=== PATIENT | male | born 1970 | race Caucasian/White ===

== ENCOUNTER 2024-03-10 17:53 | Inpatient (IN) | payer BC ==
[~2024-03-10] VITALS: Ht 177.8 cm; Wt 97.7 kg
[2024-03-10 18:43] LABS: CHLORIDE 104 mEq/L (98-107); POTASSIUM 3.9 mEq/L (3.5-5.1); SODIUM 138 mEq/L (136-145)
[2024-03-10 18:44] LABS: CALCIUM 8.9 mg/dL (8.7-10.4); CARBON DIOXIDE 21 mEq/L (21-32)
[2024-03-10 18:49] LABS: CREATININE 0.6 mg/dL (0.6-1.3); GLUCOSE 153 mg/dL (70-105); UREA NITROGEN BLOOD 10 mg/dL (9-23)
[2024-03-10 18:51] LABS: ALANINE AMINOTRANSFERASE 101 IU/L (10-49); ALBUMIN 4.2 g/dL (3.2-4.8); ASPARTATE AMINOTRANSFERASE 346 IU/L (<34); BILIRUBIN DIRECT 1.5 mg/dL (<=3.0); BILIRUBIN TOTAL 2.8 mg/dL (0.1-1.0); PROTEIN TOTAL 7.2 g/dL (6.0-8.3)
[2024-03-10 19:27] LABS: BASOPHILS % 1.3 % (0.0-2.0); EOSINOPHILS % 0.2 % (0.0-5.0); HEMATOCRIT. 29.4 % (42.0-52.0); HEMOGLOBIN. 10.3 g/dL (14.0-18.0); LYMPHOCYTES % 9.9 % (20.0-50.0); MEAN CORPUSCULAR HEMOGLOBIN 37.2 pg (28.0-32.0); MEAN CORPUSCULAR HGB CONC 34.9 g/dL (31.0-37.0); MEAN CORPUSCULAR VOLUME 106.6 fL (80.0-94.0); MEAN PLATELET VOLUME 6.9 fl (7.4-10.4); NEUTROPHILS % 78.6 % (40.0-76.0); RED BLOOD CELL COUNT 2.76 mill/uL (4.7-6.1); RED CELL DISTRIBUTION WIDTH 13.1 % (11.6-14.6); WHITE BLOOD COUNT 3.2 x1000/uL (4.5-11.0)
[2024-03-10 19:34] LABS: DIFFERENTIAL COMMENT 1; PLATELET 31 x1000/uL (130-400)
[2024-03-10 19:35] LABS: ADD RBC MORPHOLOGY YES
[2024-03-10 19:42] LABS: PLATELET ESTIMATE MARKEDLY DECREASED
[2024-03-10] MEDS: DIAZEPAM 5 MG/ML 2ML SYR IV ONE (19:46)
[2024-03-10] MEDS: TETANUS, DIPHTHERIA, PERTUSSIS VAC/PF 0.5ML (>10YR OLD) IM ONE (19:46)
[2024-03-10] MEDS: CALCIUM GLUCONATE 1GM PREMIX 50 ML IV ONE (23:08)
[2024-03-10 23:44] LABS: TROPONIN I HIGH SENSITIVITY < 4 ng/L (3.0-53)
[2024-03-11] MEDS ORDERED: ONDANSETRON HCL 4MG/2ML INJ IV PRN
[2024-03-11] MEDS ORDERED: CLONIDINE 0.1MG TABLET PO PRN
[2024-03-11] MEDS ORDERED: HYDROCODONE/ACETAMINOPHEN 5/325MG TABLET PO PRN
[2024-03-11 01:10] VITALS: BP 124/81; PULSE 80; RESP 20; TEMP 38.0304
[2024-03-11] MEDS: DIPHENHYDRAMINE 50MG/ML VIAL IV PRN (02:28)
[2024-03-11] MEDS: CHLORDIAZEPOXIDE 25MG CAPSULE PO SCH (06:34)
[2024-03-11 07:12] LABS: CARBON DIOXIDE 22 mEq/L (21-32); CHLORIDE 103 mEq/L (98-107); POTASSIUM 2.9 mEq/L (3.5-5.1); SODIUM 139 mEq/L (136-145)
[2024-03-11 07:13] LABS: CALCIUM 8.7 mg/dL (8.7-10.4)
[2024-03-11 07:16] LABS: CREATINE KINASE MB FRACTION 0.7 ng/mL (0.5-3.6)
[2024-03-11 07:17] LABS: CREATININE 0.5 mg/dL (0.6-1.3)
[2024-03-11 07:18] LABS: GLUCOSE 117 mg/dL (70-105); UREA NITROGEN BLOOD 7 mg/dL (9-23)
[2024-03-11 07:19] LABS: CREATINE KINASE 185 IU/L (46-171)
[2024-03-11 08:00] VITALS: BP 125/88; PULSE 80; RESP 19; TEMP 36.61404; O2SAT 96
[2024-03-11 08:23] LABS: TROPONIN I HIGH SENSITIVITY < 4 ng/L (3.0-53)
[2024-03-11] MEDS: MVI, ADULT NO.1 10 ML, FOLIC ACID 1 MG, THIAMINE HCL 100 MG in SODIUM CHLORIDE 0.9% 1,0... IV SCH (08:55)
[2024-03-11] MEDS: PANTOPRAZOLE SODIUM 40 MG/VIAL IV SCH (08:56)
[2024-03-11 10:09] LABS: BASOPHILS % 1.2 % (0.0-2.0); EOSINOPHILS % 1.4 % (0.0-5.0); HEMATOCRIT. 30.6 % (42.0-52.0); HEMOGLOBIN. 10.9 g/dL (14.0-18.0); LYMPHOCYTES % 18.9 % (20.0-50.0); MEAN CORPUSCULAR HEMOGLOBIN 40.3 pg (28.0-32.0); MEAN CORPUSCULAR HGB CONC 35.6 g/dL (31.0-37.0); NEUTROPHILS % 68.5 % (40.0-76.0); RED BLOOD CELL COUNT 2.71 mill/uL (4.7-6.1); WHITE BLOOD COUNT 2.7 x1000/uL (4.5-11.0)
[2024-03-11 10:54] LABS: DIFFERENTIAL COMMENT 1
[2024-03-11 10:58] LABS: PLATELET 31 x1000/uL (130-400)
[2024-03-11 12:00] VITALS: BP 118/82; PULSE 66; RESP 19; TEMP 37.61412; O2SAT 98
[2024-03-11 16:00] VITALS: BP 123/87; PULSE 67; RESP 20; TEMP 36.50292; O2SAT 98
[2024-03-11 17:08] LABS: CREATINE KINASE MB FRACTION < 0.5 ng/mL (0.5-3.6)
[2024-03-11 17:10] LABS: CREATINE KINASE 234 IU/L (46-171)
[2024-03-11 17:30] LABS: TROPONIN I HIGH SENSITIVITY < 4 ng/L (3.0-53)
[2024-03-11] MEDS ORDERED: NALOXONE HCL 0.4MG/ML VIAL IV PRN (17:45)
[2024-03-11] MEDS: POTASSIUM CHLORIDE 20MEQ/PACKET PO NR (18:13)
[2024-03-11] MEDS: LORAZEPAM 2MG/ML INJ IV PRN (18:13)
[2024-03-11 20:00] VITALS: BP 127/85; PULSE 60; RESP 20; TEMP 36.72516; O2SAT 100
[2024-03-11] MEDS: KCL 20MEQ/100ML PREMIX 100 ML IV SCH (20:57)
[2024-03-12] VITALS: BP 141/87; PULSE 82; RESP 20; TEMP 36.61404; O2SAT 100
[2024-03-12 04:00] VITALS: BP 114/85; PULSE 78; RESP 20; TEMP 36.61404; O2SAT 99
[2024-03-12 08:00] VITALS: BP 117/87; PULSE 74; RESP 18; TEMP 36.114; O2SAT 98
[2024-03-12 08:02] LABS: POTASSIUM 3.4 mEq/L (3.5-5.1)
[2024-03-12 08:09] LABS: CALCIUM 8.7 mg/dL (8.7-10.4); CARBON DIOXIDE 22 mEq/L (21-32); CHLORIDE 106 mEq/L (98-107); POTASSIUM 3.4 mEq/L (3.5-5.1); SODIUM 138 mEq/L (136-145)
[2024-03-12 08:14] LABS: CREATININE 0.4 mg/dL (0.6-1.3); GLUCOSE 86 mg/dL (70-105); UREA NITROGEN BLOOD 6 mg/dL (9-23)
[2024-03-12 08:21] LABS: BASOPHILS % 0.9 % (0.0-2.0); EOSINOPHILS % 1.8 % (0.0-5.0); HEMATOCRIT. 30.6 % (42.0-52.0); HEMOGLOBIN. 10.8 g/dL (14.0-18.0); LYMPHOCYTES % 18.5 % (20.0-50.0); MEAN CORPUSCULAR HEMOGLOBIN 39.6 pg (28.0-32.0); MEAN CORPUSCULAR HGB CONC 35.1 g/dL (31.0-37.0); MEAN CORPUSCULAR VOLUME 112.8 fL (80.0-94.0); MONOCYTES % 13.5 % (2.0-8.0); NEUTROPHILS % 65.3 % (40.0-76.0); RED BLOOD CELL COUNT 2.72 mill/uL (4.7-6.1); RED CELL DISTRIBUTION WIDTH 13.2 % (11.6-14.6); WHITE BLOOD COUNT 2.8 x1000/uL (4.5-11.0)
[2024-03-12 09:51] LABS: DIFFERENTIAL COMMENT 1
[2024-03-12 09:53] LABS: PLATELET 30 x1000/uL (130-400)
[2024-03-12 12:00] VITALS: BP 123/81; PULSE 82; RESP 18; TEMP 36.61404; O2SAT 98
[2024-03-12] MEDS: POTASSIUM CHLORIDE 20MEQ TABLET SR PO NR (13:03)
[2024-03-12 16:00] VITALS: BP 125/79; PULSE 78; RESP 18; TEMP 36.6696; O2SAT 98
[2024-03-12 20:00] VITALS: BP 126/88; PULSE 85; RESP 20; TEMP 36.9474; O2SAT 100
[2024-03-12] MEDS ORDERED: LEVETIRACETAM 500MG in NACL 100ML PREMIX IV SCH (21:00)
[2024-03-12] MEDS: LEVETIRACETAM 500MG PREMIX 100ML IV SCH (21:42)
[2024-03-12] MEDS: QUETIAPINE FUMARATE 25MG TABLET PO SCH (21:43)
[2024-03-13] VITALS: BP 120/89; PULSE 100; RESP 20; TEMP 36.61404; O2SAT 100
[2024-03-13 04:00] VITALS: BP 119/83; PULSE 83; RESP 20; TEMP 36.55848; O2SAT 100
[2024-03-13 07:10] LABS: CARBON DIOXIDE 19 mEq/L (21-32); CHLORIDE 111 mEq/L (98-107); POTASSIUM 3.7 mEq/L (3.5-5.1); SODIUM 141 mEq/L (136-145)
[2024-03-13 07:15] LABS: CREATININE 0.4 mg/dL (0.6-1.3)
[2024-03-13 07:16] LABS: GLUCOSE 86 mg/dL (70-105); UREA NITROGEN BLOOD 7 mg/dL (9-23)
[2024-03-13 08:00] VITALS: BP 117/84; PULSE 80; RESP 20; TEMP 36.55848; O2SAT 100
[2024-03-13 08:03] LABS: BASOPHILS % 0.9 % (0.0-2.0); EOSINOPHILS % 2.3 % (0.0-5.0); HEMATOCRIT. 30.9 % (42.0-52.0); HEMOGLOBIN. 10.7 g/dL (14.0-18.0); LYMPHOCYTES % 19.3 % (20.0-50.0); MEAN CORPUSCULAR HEMOGLOBIN 38.7 pg (28.0-32.0); MEAN CORPUSCULAR HGB CONC 34.7 g/dL (31.0-37.0); MEAN CORPUSCULAR VOLUME 111.4 fL (80.0-94.0); MEAN PLATELET VOLUME 8.5 fl (7.4-10.4); NEUTROPHILS % 65.5 % (40.0-76.0); RED BLOOD CELL COUNT 2.78 mill/uL (4.7-6.1); WHITE BLOOD COUNT 2.8 x1000/uL (4.5-11.0)
[2024-03-13 08:37] LABS: PLATELET 41 x1000/uL (130-400)
[2024-03-13 08:38] LABS: DIFFERENTIAL COMMENT 1
[2024-03-13] MEDS: MORPHINE SULFATE 2 MG/ML INJ (NOT FOR IM USE) IV PRN (09:42)
[2024-03-13 12:00] VITALS: BP 104/75; PULSE 83; RESP 20; TEMP 36.55848; O2SAT 100
[2024-03-13 16:00] VITALS: BP 127/88; PULSE 81; RESP 20; TEMP 36.3918; O2SAT 100
[2024-03-13 20:00] VITALS: BP 115/80; PULSE 85; RESP 18; TEMP 36.6696; O2SAT 99
[2024-03-14] VITALS: BP 133/83; PULSE 88; RESP 18; TEMP 36.89184; O2SAT 99
[2024-03-14 04:00] VITALS: BP 134/83; PULSE 85; RESP 20; TEMP 36.78072; O2SAT 98
[2024-03-14 08:00] VITALS: BP 131/83; PULSE 96; RESP 19; TEMP 36.9474; O2SAT 95
[2024-03-14 12:00] VITALS: BP 140/94; PULSE 109; RESP 20; TEMP 36.61404; O2SAT 91
[2024-03-14] MEDS: THIAMINE HCL 100MG TABLET PO SCH (12:08)
[2024-03-14 16:00] VITALS: BP 135/95; PULSE 113; RESP 20; TEMP 37.05852; O2SAT 96
[2024-03-14 17:20] LABS: AMMONIA 26 uMol/L (<32)
[2024-03-14 17:25] LABS: VITAMIN B12 SERUM > 2000 pg/mL (211-911)
[2024-03-14 20:00] VITALS: BP 113/100; PULSE 113; RESP 19; TEMP 39.11424; O2SAT 98
[2024-03-14] MEDS: ACETAMINOPHEN 325MG TABLET PO PRN (21:55)
[2024-03-15] VITALS (7 sets, daily range): BP systolic 93–135; BP diastolic 65–87; PULSE 76–121; RESP 17–20; TEMP 36.3918–36.89184; O2SAT 93–97
[2024-03-15] MEDS: IPRATROPIUM/ALBUTEROL 0.5-3(2.5)MG/3ML NEB HHN SCH (01:30)
[2024-03-15] MEDS ORDERED: CEFEPIME 1GM IN DEXT 5% 50ML IV SCH (16:15)
[2024-03-15] MEDS: METHYLPREDNISOLONE SOD SUCC 40MG/ML (ACT-O-VIAL) IV SCH (19:06)
[2024-03-15] MEDS: ZOLPIDEM TARTRATE 5MG TABLET PO PRN (21:14)
[2024-03-15] MEDS: MICONAZOLE NITRATE 2% OINT 71GM TOP SCH (21:17)
[2024-03-15] MEDS: CEFEPIME 1GM PREMIX 50ML IV SCH (21:45)
[2024-03-16] VITALS (11 sets, daily range): BP systolic 99–109; BP diastolic 67–75; PULSE 80–104; RESP 16–20; TEMP 35.6–36.72516; O2SAT 93–98
[2024-03-16] MEDS ORDERED: CEFEPIME 1GM IN DEXT 5% 50ML IV SCH (04:15)
[2024-03-16] MEDS: MUPIROCIN 2% OINT 22GM TOP SCH (13:00)
[2024-03-16 19:02] LABS: BASOPHILS % 0.2 % (0.0-2.0); DIFFERENTIAL COMMENT 0; EOSINOPHILS % 0.1 % (0.0-5.0); HEMATOCRIT. 32.4 % (42.0-52.0); HEMOGLOBIN. 10.9 g/dL (14.0-18.0); LYMPHOCYTES % 7.9 % (20.0-50.0); MEAN CORPUSCULAR HGB CONC 33.8 g/dL (31.0-37.0); MEAN CORPUSCULAR VOLUME 109.5 fL (80.0-94.0); MEAN PLATELET VOLUME 8.7 fl (7.4-10.4); MONOCYTES % 13.2 % (2.0-8.0); NEUTROPHILS % 78.6 % (40.0-76.0); PLATELET 81 x1000/uL (130-400); RED BLOOD CELL COUNT 2.96 mill/uL (4.7-6.1); RED CELL DISTRIBUTION WIDTH 13.3 % (11.6-14.6); WHITE BLOOD COUNT 2.2 x1000/uL (4.5-11.0)
[2024-03-16 19:09] LABS: CHLORIDE 109 mEq/L (98-107); POTASSIUM 3.3 mEq/L (3.5-5.1); SODIUM 139 mEq/L (136-145)
[2024-03-16 19:10] LABS: CALCIUM 8.5 mg/dL (8.7-10.4); CARBON DIOXIDE 18 mEq/L (21-32)
[2024-03-16 19:15] LABS: CREATININE 0.4 mg/dL (0.6-1.3); GLUCOSE 163 mg/dL (70-105); UREA NITROGEN BLOOD 13 mg/dL (9-23)
[2024-03-17] VITALS (12 sets, daily range): BP systolic 103–117; BP diastolic 72–88; PULSE 65–92; RESP 16–20; TEMP 36.3–36.7; O2SAT 95–99
[2024-03-17 08:45] LABS: *AMPHETAMINES SCREEN URINE NEGATIVE (NEGATIVE); *BARBITURATES SCREEN URINE NEGATIVE (NEGATIVE); *BENZODIAZEPINES SCREEN URINE PRESUMPTIVE POSITIVE (NEGATIVE); *COCAINE SCREEN URINE NEGATIVE (NEGATIVE); METHADONE URINE SCREEN NEGATIVE (NEGATIVE); OPIATES URINE SCREEN NEGATIVE (NEGATIVE); PHENCYCLIDINE URINE SCREEN NEGATIVE (NEGATIVE)
[2024-03-17 08:46] LABS: CANNABINOID URINE SCREEN NEGATIVE (NEGATIVE); ECSTASY MDMA SCREEN URINE NEGATIVE (NEGATIVE)
[2024-03-17] MEDS ORDERED: THIAMINE HCL 100MG TABLET PO SCH (16:00)
[2024-03-18] VITALS (12 sets, daily range): BP systolic 118–136; BP diastolic 76–91; PULSE 70–87; RESP 16–20; TEMP 35.5–36.7; O2SAT 92–100
[2024-03-18 09:18] LABS: BASOPHILS % 0.1 % (0.0-2.0); DIFFERENTIAL COMMENT 0; EOSINOPHILS % 0.3 % (0.0-5.0); HEMATOCRIT. 35.2 % (42.0-52.0); LYMPHOCYTES % 9.2 % (20.0-50.0); MEAN CORPUSCULAR HEMOGLOBIN 37.1 pg (28.0-32.0); MEAN CORPUSCULAR HGB CONC 34.1 g/dL (31.0-37.0); MEAN CORPUSCULAR VOLUME 108.8 fL (80.0-94.0); MEAN PLATELET VOLUME 8.3 fl (7.4-10.4); MONOCYTES % 14.3 % (2.0-8.0); NEUTROPHILS % 76.1 % (40.0-76.0); PLATELET 110 x1000/uL (130-400); RED BLOOD CELL COUNT 3.23 mill/uL (4.7-6.1); RED CELL DISTRIBUTION WIDTH 13.5 % (11.6-14.6)
[2024-03-18 09:21] LABS: BG BASE EXCESS -1.6 mmol/L (-2.0-3.0); BG DEOXYHEMOGLOBIN 5.9 % (0.0-5.0); BG FRACTION INSPIRED OXYGEN 21; BG HCO3 ACT 21.5 mmol/L (21.0-28.0); BG METHEMOGLOBIN 0.1 % (0.5-1.5); BG PCO2 31.5 mmHg (35.0-48.0); BG PH 7.451 (7.350-7.450); BG PO2 69.9 mmHg (83.0-108.0); BG SAMPLE SITE RIGHT RADIAL; BG TOTAL HEMOGLOBIN 13.9 g/dL (13.5-17.5); BG VENT MODE ROOM AIR
[2024-03-18 09:23] LABS: CHLORIDE 112 mEq/L (98-107); POTASSIUM 3.4 mEq/L (3.5-5.1); SODIUM 141 mEq/L (136-145)
[2024-03-18 09:24] LABS: CARBON DIOXIDE 20 mEq/L (21-32)
[2024-03-18 09:25] LABS: CALCIUM 8.8 mg/dL (8.7-10.4)
[2024-03-18 09:29] LABS: CREATININE 0.4 mg/dL (0.6-1.3); GLUCOSE 102 mg/dL (70-105)
[2024-03-18 09:30] LABS: UREA NITROGEN BLOOD 13 mg/dL (9-23)
[2024-03-19] VITALS (10 sets, daily range): BP systolic 15–149; BP diastolic 79–96; PULSE 53–78; RESP 16–24; TEMP 36.2–36.8; O2SAT 94–99
[2024-03-19 07:53] LABS: CALCIUM 8.8 mg/dL (8.7-10.4); CARBON DIOXIDE 20 mEq/L (21-32); CHLORIDE 109 mEq/L (98-107); POTASSIUM 4.3 mEq/L (3.5-5.1); SODIUM 140 mEq/L (136-145)
[2024-03-19 07:59] LABS: CREATININE 0.5 mg/dL (0.6-1.3); GLUCOSE 113 mg/dL (70-105); UREA NITROGEN BLOOD 8 mg/dL (9-23)
[2024-03-19 08:25] LABS: HEMATOCRIT. 33.5 % (42.0-52.0); HEMOGLOBIN. 11.6 g/dL (14.0-18.0); MEAN CORPUSCULAR HEMOGLOBIN 38.4 pg (28.0-32.0); MEAN CORPUSCULAR HGB CONC 34.6 g/dL (31.0-37.0); MEAN CORPUSCULAR VOLUME 111.2 fL (80.0-94.0); MEAN PLATELET VOLUME 8.6 fl (7.4-10.4); PLATELET 109 x1000/uL (130-400); RED BLOOD CELL COUNT 3.02 mill/uL (4.7-6.1); WHITE BLOOD COUNT 2.9 x1000/uL (4.5-11.0)
[2024-03-19 08:37] LABS: DIFFERENTIAL COMMENT 1
[2024-03-19] MEDS: QUETIAPINE FUMARATE 50MG TABLET PO SCH (20:21)
[2024-03-20] VITALS (9 sets, daily range): BP systolic 112–145; BP diastolic 80–97; PULSE 63–100; RESP 17–20; TEMP 35.8–36.3; O2SAT 94–100
[2024-03-20 07:25] LABS: BASOPHILS % 0.3 % (0.0-2.0); DIFFERENTIAL COMMENT 0; EOSINOPHILS % 0.2 % (0.0-5.0); HEMATOCRIT. 33.8 % (42.0-52.0); HEMOGLOBIN. 11.6 g/dL (14.0-18.0); LYMPHOCYTES % 20.7 % (20.0-50.0); MEAN CORPUSCULAR HGB CONC 34.2 g/dL (31.0-37.0); MEAN CORPUSCULAR VOLUME 107.9 fL (80.0-94.0); MEAN PLATELET VOLUME 8.5 fl (7.4-10.4); MONOCYTES % 12.3 % (2.0-8.0); NEUTROPHILS % 66.5 % (40.0-76.0); PLATELET 135 x1000/uL (130-400); RED BLOOD CELL COUNT 3.13 mill/uL (4.7-6.1); RED CELL DISTRIBUTION WIDTH 13.8 % (11.6-14.6); WHITE BLOOD COUNT 3.9 x1000/uL (4.5-11.0)
[2024-03-20 08:03] LABS: CARBON DIOXIDE 22 mEq/L (21-32); CHLORIDE 108 mEq/L (98-107); POTASSIUM 3.8 mEq/L (3.5-5.1); SODIUM 138 mEq/L (136-145)
[2024-03-20 08:05] LABS: CALCIUM 8.7 mg/dL (8.7-10.4)
[2024-03-20 08:09] LABS: CREATININE 0.4 mg/dL (0.6-1.3); GLUCOSE 105 mg/dL (70-105); UREA NITROGEN BLOOD 8 mg/dL (9-23)
[2024-03-21] VITALS: BP 121/89; PULSE 67; RESP 18; TEMP 36.6; O2SAT 97
[2024-03-21 04:00] VITALS: BP 109/74; PULSE 66; RESP 19; TEMP 36.2; O2SAT 100
[2024-03-21 08:36] VITALS: BP 106/79; PULSE 67; RESP 18; TEMP 36.3; O2SAT 96
[2024-03-21 12:00] VITALS: BP 104/71; PULSE 69; RESP 18; TEMP 36.4; O2SAT 96
[2024-03-21] MEDS: METHYLPREDNISOLONE SOD SUCC 125MG/2ML (ACT-O-VIAL) IV SCH (13:39)
[2024-03-21 16:00] VITALS: BP 109/90; PULSE 65; RESP 17; TEMP 36.5; O2SAT 96
[2024-03-21 16:26] LABS: PLATELET ESTIMATE SLIGHTLY DECREASED
[2024-03-21 20:00] VITALS: BP 124/81; PULSE 75; RESP 18; TEMP 36.4; O2SAT 98
[2024-03-22] VITALS: BP 127/96; PULSE 66; RESP 18; TEMP 36.5; O2SAT 99
[2024-03-22 04:00] VITALS: BP 113/84; PULSE 59; RESP 19; TEMP 36.7; O2SAT 99
[2024-03-22 08:00] VITALS: BP 127/96; PULSE 66; RESP 18; TEMP 36.5; O2SAT 99
[2024-03-22 12:00] VITALS: BP 109/75; PULSE 78; RESP 18; TEMP 36.3; O2SAT 100
[2024-03-22 16:00] VITALS: BP 111/67; PULSE 75; RESP 17; TEMP 36.8; O2SAT 100
[2024-03-22 20:00] VITALS: BP 121/86; PULSE 84; RESP 18; TEMP 36.6; O2SAT 95
[2024-03-22] MEDS: LEVETIRACETAM 500MG TABLET PO SCH (21:03)
[2024-03-23 04:00] VITALS: BP 122/84; PULSE 82; RESP 18; TEMP 36.3; O2SAT 99
[2024-03-23 08:00] VITALS: BP 125/89; PULSE 70; RESP 12; TEMP 36.7; O2SAT 97
[2024-03-23 12:00] VITALS: BP 113/82; PULSE 69; RESP 16; TEMP 36.7; O2SAT 97
[2024-03-23 16:00] VITALS: BP_SYST 103; BP_SYST 117; BP_SYST 76; BP_DIAS 54; BP_DIAS 72; BP_DIAS 81; PULSE 78; RESP 16; TEMP 36.7; O2SAT 98
[2024-03-23 20:00] VITALS: BP 107/77; PULSE 82; RESP 18; TEMP 36.4; O2SAT 100
[2024-03-24 04:00] VITALS: BP 105/72; PULSE 62; RESP 18; TEMP 36.1
[2024-03-24 06:00] VITALS: BP 105/72; PULSE 62; RESP 18; TEMP 36.1; O2SAT 98
[2024-03-24 08:00] VITALS: BP 130/65; PULSE 90; RESP 19; TEMP 36.3; O2SAT 98
[2024-03-24 12:00] VITALS: BP 104/77; PULSE 99; RESP 19; TEMP 35.9; O2SAT 100
[2024-03-24 16:00] VITALS: BP 136/62; PULSE 76; RESP 18; TEMP 36.6; O2SAT 97
[2024-03-24 20:00] VITALS: BP 107/76; PULSE 64; RESP 19; TEMP 36.8; O2SAT 99
[2024-03-25] VITALS: BP 100/67; PULSE 55; RESP 19; TEMP 36.4; O2SAT 97
[2024-03-25 08:00] VITALS: BP 110/72; PULSE 76; RESP 17; TEMP 35.9; O2SAT 100
[2024-03-25 12:00] VITALS: BP 110/63; PULSE 70; RESP 17; TEMP 36.6; O2SAT 100
[2024-03-25] MEDS ORDERED: QUET50TA PO (15:47)
[2024-03-25] MEDS ORDERED: KEPP500 PO (15:47)
[2024-03-25] MEDS ORDERED: THIA100T72 PO (15:47)
[2024-03-25 16:00] VITALS: BP 118/62; PULSE 80; RESP 18; TEMP 36.4; O2SAT 98
[2024-03-25 18:24] VITALS: BP 118/62; PULSE 80; TEMP 97.6; O2SAT 100
[2024-03-25 20:28] VITALS: PULSE 99; RESP 19
== END 2024-03-25 19:30 | disposition home health service (06) | DRG 40 ==
LOC: ER 17:53 → 7EST 21:28 → EDBEDREQ 21:33 → EDBEDREQTM 21:33 → EDBEDREQ 21:35 → 4WST 03-23 18:43 → 7EST 03-23 18:44
PROVIDERS: ADMIT Internal Medicine; ATTEND Internal Medicine
PROC: 0JB80ZZ Excision of Abdomen Subcutaneous Tissue and Fascia, Open Approach (ICD-10-PCS; principal; 2024-03-15)
DX: R56.9 Unspecified convulsions (principal); G92.8 Other toxic encephalopathy; J69.0 Pneumonitis due to inhalation of food and vomit; F10.239 Alcohol dependence with withdrawal, unspecified; L02.211 Cutaneous abscess of abdominal wall; I10 Essential (primary) hypertension; Z20.822 Contact with and (suspected) exposure to COVID-19; I95.1 Orthostatic hypotension; F17.210 Nicotine dependence, cigarettes, uncomplicated; L30.3 Infective dermatitis; L08.0 Pyoderma; J44.9 Chronic obstructive pulmonary disease, unspecified; Z91.041 Radiographic dye allergy status; Z91.148 Patient's other noncompliance with medication regimen for other reason
CPT/HCPCS: 36415; 36600; 70551; 71045; 72141; 72148; 80048; 80076; 80305; 82140; 82375; 82550; 82553; 82607; 82805; 84132; 84443; 84484; 85025; 87426; 90715; 93005; 93970; 94070; 94640; 94664; 94760; 97162; 97166; 97530; 97535; 99291; A4606; J0610; J0692; J1200; J1953; J2060; J2270; J2470; J2919; J2920; J3411; J3480; J3490; J7030